=== PATIENT | male | born 1980 | race Caucasian/White ===

== ENCOUNTER 2018-03-26 21:55 | Emergency (ER) | payer OTHER ==
[2018-03-26] MEDS: PERCOCET 5MG/325MG TAB PO (23:46)
[2018-03-26] MEDS: AUGMENTIN 875 MG TAB PO (23:46)
== END 2018-03-26 23:57 | disposition home or self-care (01) ==
LOC: M ED 21:55
DX: K04.7 Periapical abscess without sinus (principal); F17.200 Nicotine dependence, unspecified, uncomplicated; F43.10 Post-traumatic stress disorder, unspecified; G62.9 Polyneuropathy, unspecified; Z79.899 Other long term (current) drug therapy
CPT/HCPCS: 99283

== ENCOUNTER 2018-06-19 17:46 | Emergency (ER) | payer OTHER ==
[2018-06-19] MEDS: LIDOCAINE 1% MDV 20ML VIAL IM (18:15)
[2018-06-19] MEDS: DERMABOND TOPICAL SKIN ADHESIVE TOP (18:15)
== END 2018-06-19 18:48 | disposition home or self-care (01) ==
LOC: M ED 17:46
DX: S68.121A Partial traumatic metacarpophalangeal amputation of left index finger, initial encounter (principal); S68.022A Partial traumatic metacarpophalangeal amputation of left thumb, initial encounter; W27.0XXA Contact with workbench tool, initial encounter; Y92.009 Unspecified place in unspecified non-institutional (private) residence as the place of occurrence of the external cause; F43.10 Post-traumatic stress disorder, unspecified; F17.200 Nicotine dependence, unspecified, uncomplicated
CPT/HCPCS: 12001

== ENCOUNTER 2018-07-28 17:09 | Inpatient (IN) | payer OTHER ==
[2018-07-28 18:01] LABS: HEMATOCRIT 46.1 % (42.0-52.0); HEMOGLOBIN 15.7 g/dl (13.5-17.5); MEAN CORPUSCULAR HEMOGLOBIN 30.8 pg (27.0-33.0); MEAN CORPUSCULAR HGB CONC 34.1 g/dl (32.0-36.5); MEAN CORPUSCULAR VOLUME 90.6 fl (80.0-96.0); PLATELET COUNT, AUTOMATED 208 10^3/uL (150-450); RED BLOOD COUNT 5.09 10^6/uL (4.30-6.10); RED CELL DISTRIBUTION WIDTH 12.4 % (11.5-14.5); WHITE BLOOD COUNT 8.3 10^3/uL (4.0-10.0)
[2018-07-28 18:08] LABS: AMPHETAMINES LEVEL URINE NEGATIVE (NEGATIVE); BARBITURATES URINE NEGATIVE (NEGATIVE); BENZODIAZEPINES URINE NEGATIVE (NEGATIVE); CANNABINOIDS URINE NEGATIVE (NEGATIVE); COCAINE METABOLITE URINE NEGATIVE (NEGATIVE); METHADONE URINE NEGATIVE (NEGATIVE); OPIATES URINE NEGATIVE (NEGATIVE); PHENCYCLIDINE URINE NEGATIVE (NEGATIVE)
[2018-07-28 18:18] LABS: ACETAMINOPHEN LEVEL < 2.0 UG/ML (10.0-30.0); ALBUMIN 4.1 GM/DL (3.2-5.2); ALBUMIN/GLOBULIN RATIO 1.21 (1.00-1.93); ALKALINE PHOSPHATASE 88 U/L (45-117); ALT/SGPT 22 U/L (12-78); ANION GAP 6 MEQ/L (8-16); AST/SGOT 15 U/L (7-37); BILIRUBIN,DIRECT 0.1 MG/DL (0.0-0.2); BILIRUBIN,TOTAL 0.3 MG/DL (0.2-1.0); BLOOD UREA NITROGEN 13 MG/DL (7-18); CALCIUM LEVEL 8.7 MG/DL (8.5-10.1); CARBON DIOXIDE LEVEL 32 MEQ/L (21-32); CHLORIDE LEVEL 106 MEQ/L (98-107); CREATININE FOR GFR 1.27 MG/DL (0.70-1.30); ETHYL ALCOHOL (ETHANOL) < 0.003 % (0.000-0.010); GLOMERULAR FILTRATION RATE > 60.0 (>60); GLUCOSE, FASTING 83 MG/DL (70-100); SALICYLATE LEVEL 1.7 MG/DL (5.0-30.0); SODIUM LEVEL 144 MEQ/L (136-145); TOTAL PROTEIN 7.5 GM/DL (6.4-8.2)
[2018-07-28] MEDS ORDERED: MAALOX 30 ML SUSP *UDC PO (19:45)
[2018-07-28] MEDS ORDERED: MOM 30ML SUSPENSION UDC PO (19:45)
[2018-07-28] MEDS ORDERED: ACETAMINOPHEN TAB 650MG DOSE (2X325MG) PO (19:45)
[2018-07-29] MEDS: INFLUENZA QUADRIVALENT PF VACCINE 0.5ML SYRINGE (90686) IM (09:23)
[2018-07-29] MEDS ORDERED: MIRALAX *UNIT DOSE* 17GM PACKET PO (10:15)
[2018-07-29] MEDS: DOCUSATE SODIUM 100 MG CAP PO ×2 (10:21→21:00)
[2018-07-29] MEDS ORDERED: IBUPROFEN 800 MG TAB PO (10:30)
[2018-07-29] MEDS ORDERED: hydrOXYzine 50 MG TAB PO (11:45)
[2018-07-29] MEDS: SERTRALINE HCL 50 MG TAB PO (12:16)
[2018-07-29] MEDS: busPIRone 10 MG TAB PO ×3 (12:16→21:52)
[2018-07-29] MEDS: traZODone 50 MG TAB PO (23:36)
[2018-07-30] MEDS: LIDOCAINE 5% (LIDODERM) PATCH TD (09:00)
[2018-07-30] MEDS: DOCUSATE SODIUM 100 MG CAP PO ×2 (09:00→21:45)
[2018-07-30] MEDS: SERTRALINE HCL 50 MG TAB PO (09:20)
[2018-07-30] MEDS: busPIRone 10 MG TAB PO ×3 (09:20→21:45)
[2018-07-30] MEDS: **NOTE PATIENT COMMENT** MISC XX (21:00)
[2018-07-30] MEDS: traZODone 50 MG TAB PO (21:45)
[2018-07-31] MEDS: SERTRALINE HCL 50 MG TAB PO (08:43)
[2018-07-31] MEDS: busPIRone 10 MG TAB PO ×3 (08:43→21:22)
[2018-07-31] MEDS: LIDOCAINE 5% (LIDODERM) PATCH TD (08:43)
[2018-07-31] MEDS: DOCUSATE SODIUM 100 MG CAP PO ×2 (08:43→21:22)
[2018-07-31] MEDS: **NOTE PATIENT COMMENT** MISC XX (21:00)
[2018-07-31] MEDS: traZODone 50 MG TAB PO (23:01)
[2018-08-01] MEDS: LIDOCAINE 5% (LIDODERM) PATCH TD (08:55)
[2018-08-01] MEDS: DOCUSATE SODIUM 100 MG CAP PO ×2 (08:56→21:33)
[2018-08-01] MEDS: SERTRALINE HCL 50 MG TAB PO (08:56)
[2018-08-01] MEDS: busPIRone 10 MG TAB PO ×3 (08:56→21:33)
[2018-08-01] MEDS: **NOTE PATIENT COMMENT** MISC XX (21:00)
[2018-08-01] MEDS: traZODone 50 MG TAB PO (22:56)
[2018-08-02] MEDS: DOCUSATE SODIUM 100 MG CAP PO (08:06)
[2018-08-02] MEDS: busPIRone 10 MG TAB PO (08:06)
[2018-08-02] MEDS: LIDOCAINE 5% (LIDODERM) PATCH TD (08:06)
[2018-08-02] MEDS: SERTRALINE HCL 50 MG TAB PO (08:06)
== END 2018-08-02 13:00 | disposition home or self-care (01) | DRG 882 ==
LOC: M ED 17:09 → M ED INP 19:43 → M PSY 20:34
DX: F43.10 Post-traumatic stress disorder, unspecified (principal); R45.851 Suicidal ideations; F60.2 Antisocial personality disorder; F60.81 Narcissistic personality disorder; Z76.5 Malingerer [conscious simulation]; M54.5 Low back pain; Z79.899 Other long term (current) drug therapy

== ENCOUNTER → 2018-11-08 | Outpatient (REF) | payer OTHER ==
[~2018-11-08] MED LIST: AMOX875T2 PO; BUPR150T3 PO; BUPR300T34 PO; BUSP10TA PO; BUSP15TA47 PO; HYDRO50TAB PO; IBUP1TAB7 PO; PERC5TAB12 PO; SERT50TA PO; TRAZO50TA PO; ZOLO100T PO
[2018-11-08 14:19] LABS: BLOOD UREA NITROGEN 12 MG/DL (7-18); CREATININE FOR GFR 0.88 MG/DL (0.70-1.30); GLOMERULAR FILTRATION RATE > 60.0 (>60); RHEUMATOID FACTOR QUANT < 10.0 IU/ML (<15.0); THYROID STIMULATING HORMONE 0.473 uIU/ML (0.358-3.740); TOTAL 25(OH) VITAMIN D 26.9 NG/ML (30.0-100.0); VITAMIN B12 LEVEL 461 PG/ML
[2018-11-08 14:20] LABS: FOLATE 15.9 NG/ML
[2018-11-11 08:07] LABS: ANTINUCLEAR ANTIBODIES DIRECT Negative (Negative); VITAMIN B1 LEVEL WHOLE BLOOD 114.1 nmol/L (66.5-200.0); VITAMIN B6,PYRIDOXAL PHOSPHATE 9.8 ug/L (5.3-46.7); VITAMIN E(ALPHA TOCOPHEROL) 7.4 mg/L (5.9-19.4); VITAMIN E(GAMMA TOCOPHEROL) 0.9 mg/L (0.7-4.9)
== END ==
LOC: M LABNEURO 11:23
PROVIDERS: ATTEND Psychiatry & Neurology Neurology
DX: R51 Headache (principal)

== ENCOUNTER → 2021-08-26 | Outpatient (REF) ==
[~2021-08-26] MED LIST changes: +BUPR150T12 PO; -BUPR150T3 PO; -BUPR300T34 PO; +BUPR300T92 PO; +HYDR1TAB33 PO; -HYDRO50TAB PO; +SERT-141 PO; -SERT50TA PO; +TRAZ1TAB10 PO; -TRAZO50TA PO
--- NOTE | 2021-08-26 13:32 | REP ---
INDICATION: PAIN COMPARISON: None TECHNIQUE: Three views FINDINGS: There is a tiny marginal osteophyte arising from the inferior pole of the articular surface of the patella. The compartments are symmetric and well maintained. There is no fracture or osseous lesion. IMPRESSION: Early patellar degenerative changes. <Electronically signed by Rolly Tamayo > 08/26/21 [id number]
--- NOTE | 2021-08-26 13:58 | REP ---
INDICATION: LOWER BACK PAIN,KNEE PAIN. COMPARISON: None TECHNIQUE: Three views FINDINGS: AP and lateral views show vertebral body height and alignment to be within normal limits. There is minimal posterior disc space narrowing at every level. There is minimal anterior lipping L4 and L5. The pedicles are intact bilaterally. IMPRESSION: Minimal degenerative changes as described above. <Electronically signed by Rolly Tamayo > 08/26/21 [id number]
== END ==
LOC: M PLAIMG 11:53
PROVIDERS: ATTEND Internal Medicine
DX: M17.9 Osteoarthritis of knee, unspecified (principal); M51.36 Other intervertebral disc degeneration, lumbar region

== ENCOUNTER 2022-09-03 09:05 | Emergency (ER) | payer OTHER ==
[~2022-09-03] VITALS: Ht 175.3 cm; Wt 78.3 kg
[2022-09-03] MEDS ORDERED: METHIMAZOLE PO (09:29)
[2022-09-03 12:02] LABS: BASO # 0.1 10^3/uL (0.0-0.2); BASO % 0.7 % (0.0-1.0); EOS # 0.5 10^3/uL (0.0-0.5); EOS % 6.2 % (0.0-3.0); HEMATOCRIT 45.8 % (42.0-52.0); HEMOGLOBIN 15.6 g/dl (13.5-17.5); LYMPH # 1.6 10^3/uL (1.5-5.0); LYMPH % 22.5 % (24.0-44.0); MEAN CORPUSCULAR HEMOGLOBIN 31.6 pg (27.0-33.0); MEAN CORPUSCULAR HGB CONC 34.1 g/dl (32.0-36.5); MEAN CORPUSCULAR VOLUME 92.7 fl (80.0-96.0); MONO # 0.5 10^3/uL (0.0-0.8); MONO % 7.1 % (2.0-8.0); NEUTROPHILS # 4.6 10^3/uL (1.5-8.5); NEUTROPHILS % 63.2 % (36.0-66.0); PLATELET COUNT, AUTOMATED 182 10^3/uL (150-450); RED BLOOD COUNT 4.94 10^6/uL (4.30-6.10); WHITE BLOOD COUNT 7.3 10^3/uL (4.0-10.0)
[2022-09-03 12:11] LABS: APPEARANCE, URINE MANUAL CLEAR (CLEAR); COLOR, URINE MANUAL YELLOW (YELLOW)
[2022-09-03 12:12] LABS: SPECIFIC GRAVITY,URINE MANUAL 1.005 (1.002-1.035)
[2022-09-03 12:13] LABS: BILIRUBIN, URINE MANUAL NEGATIVE (NEGATIVE); BLOOD URINE MANUAL NEGATIVE (NEGATIVE); GLUCOSE, URINE (UA) MANUAL NEGATIVE (NEGATIVE); KETONE, URINE MANUAL NEGATIVE (NEGATIVE); LEUKOCYTE ESTERASE, URINE MAN NEGATIVE (NEGATIVE); NITRITE, URINE MANUAL NEGATIVE (NEGATIVE); PROTEIN, URINE MANUAL NEGATIVE (NEGATIVE); UROBILINOGEN, URINE MANUAL NORMAL (NORMAL)
[2022-09-03 12:52] LABS: ALBUMIN 4.1 GM/DL (3.2-5.2); ALT/SGPT 25 U/L (12-78); BILIRUBIN,DIRECT 0.2 MG/DL (0.0-0.2); BILIRUBIN,TOTAL 0.5 MG/DL (0.2-1.0); BLOOD UREA NITROGEN 10 MG/DL (7-18); CALCIUM LEVEL 9.2 MG/DL (8.5-10.1); CARBON DIOXIDE LEVEL 30 MEQ/L (21-32); CHLORIDE LEVEL 106 MEQ/L (98-107); CREATININE FOR GFR 0.99 MG/DL (0.70-1.30); GLOMERULAR FILTRATION RATE > 60.0 (>60); GLUCOSE, FASTING 93 MG/DL (70-100); LIPASE 203 U/L (73-393); POTASSIUM SERUM 4.3 MEQ/L (3.5-5.1); SODIUM LEVEL 138 MEQ/L (136-145); TOTAL PROTEIN 7.6 GM/DL (6.4-8.2)
[2022-09-03] MEDS ORDERED: GI COCKTAIL 50ML BTL(HYOSCYAMINE/MAALOX/LIDOCAINE VISCOUS)(1:3:1) PO ONE (13:10)
[2022-09-03 13:37] LABS: FREE THYROXINE INDEX 2.5 % (1.4-3.8); T UPTAKE 35 % (33-40); THYROXINE (T4) 7.1 UG/DL (4.5-12.0)
[2022-09-03] MEDS ORDERED: PROT1TAB2 PO (14:01)
[2022-09-03] MEDS ORDERED: SUCR1SS PO (14:01)
[2022-09-03 14:19] VITALS: BP 160/85
== END 2022-09-03 14:20 | disposition home or self-care (01) ==
LOC: M ED 09:05
DX: K29.70 Gastritis, unspecified, without bleeding (principal); K20.90 Esophagitis, unspecified without bleeding; M54.50 Low back pain, unspecified; K21.9 Gastro-esophageal reflux disease without esophagitis; G47.33 Obstructive sleep apnea (adult) (pediatric); F43.10 Post-traumatic stress disorder, unspecified; Z98.52 Vasectomy status; Z79.899 Other long term (current) drug therapy

== ENCOUNTER → 2023-06-11 | Outpatient (REF) | payer OTHER ==
[~2023-06-11] MED LIST changes: +METHIMAZOLE PO; +PROT1TAB2 PO; +SUCR1SS PO
[2023-06-11 16:59] LABS: APPEARANCE, URINE CLEAR (CLEAR); BACTERIA, URINE AUTO NEGATIVE (NEGATIVE); BILIRUBIN, URINE AUTO NEGATIVE (NEGATIVE); BLOOD, URINE BLOOD NEGATIVE (NEGATIVE); COLOR, URINE YELLOW (YELLOW); GLUCOSE, URINE (UA) AUTO NEGATIVE (NEGATIVE); KETONE, URINE AUTO TRACE mg/dL (NEGATIVE); LEUKOCYTE ESTERASE, URINE AUTO NEGATIVE (NEGATIVE); NITRITE, URINE AUTO NEGATIVE (NEGATIVE); PROTEIN, URINE AUTO NEGATIVE (NEGATIVE); RBC, URINE AUTO 10 /HPF (0-3); SQUAMOUS EPITHELIAL CELL UR AU 0 /HPF (0-6); UROBILINOGEN, URINE AUTO 0.2 mg/dL (0.0-2.0); WBC, URINE AUTO 12 /HPF (0-3)
== END ==
LOC: M LAB REF 16:09
PROVIDERS: ATTEND Physician Assistant
DX: N39.0 Urinary tract infection, site not specified (principal)

== ENCOUNTER → 2023-06-21 | Outpatient (REF) | payer OTHER ==
[2023-06-21 17:39] LABS: APPEARANCE, URINE CLEAR (CLEAR); BACTERIA, URINE AUTO NEGATIVE (NEGATIVE); BILIRUBIN, URINE AUTO NEGATIVE (NEGATIVE); BLOOD, URINE BLOOD NEGATIVE (NEGATIVE); COLOR, URINE YELLOW (YELLOW); GLUCOSE, URINE (UA) AUTO NEGATIVE (NEGATIVE); KETONE, URINE AUTO NEGATIVE (NEGATIVE); LEUKOCYTE ESTERASE, URINE AUTO NEGATIVE (NEGATIVE); NITRITE, URINE AUTO NEGATIVE (NEGATIVE); PROTEIN, URINE AUTO NEGATIVE (NEGATIVE); RBC, URINE AUTO 0 /HPF (0-3); SPECIFIC GRAVITY URINE AUTO 1.019 (1.002-1.035); SQUAMOUS EPITHELIAL CELL UR AU 0 /HPF (0-6); UROBILINOGEN, URINE AUTO 0.2 mg/dL (0.0-2.0); WBC, URINE AUTO 9 /HPF (0-3)
[2023-06-21 18:47] LABS: GC DNA AMPLIFICATION NEGATIVE (NEGATIVE)
== END ==
LOC: M LAB REF 16:25
PROVIDERS: ATTEND Physician Assistant Medical
DX: N39.0 Urinary tract infection, site not specified (principal)

== ENCOUNTER 2025-06-21 19:44 | Emergency (ER) | payer OTHER ==
[~2025-06-21] VITALS: Ht 175.3 cm; Wt 71.4 kg
[~2025-06-21 19:44] MED LIST changes: +BUPR-766 PO; -BUPR300T92 PO
[2025-06-21] MEDS ORDERED: ACAR50TA3 PO (19:53)
[2025-06-21] MEDS: PERCOCET 5MG/325MG TAB PO ONE (23:33)
[2025-06-21] MEDS: ONDANSETRON 4MG ORAL DISINTEGRATING TAB PO ONE (23:33)
[2025-06-22] MEDS ORDERED: IBUP600T42 PO (00:07)
[2025-06-22] MEDS ORDERED: PERC5TAB12 PO (00:07)
[2025-06-22 00:31] LABS: APPEARANCE, URINE HAZY (CLEAR); BACTERIA, URINE AUTO NEGATIVE (NEGATIVE); BILIRUBIN, URINE AUTO NEGATIVE (NEGATIVE); BLOOD, URINE BLOOD NEGATIVE (NEGATIVE); GLUCOSE, URINE (UA) AUTO NEGATIVE (NEGATIVE); KETONE, URINE AUTO NEGATIVE (NEGATIVE); LEUKOCYTE ESTERASE, URINE AUTO TRACE (NEGATIVE); MUCUS, URINE SMALL (NEGATIVE); NITRITE, URINE AUTO NEGATIVE (NEGATIVE); PROTEIN, URINE AUTO NEGATIVE (NEGATIVE); RBC, URINE AUTO 2 /HPF (0-3); SPECIFIC GRAVITY URINE AUTO 1.026 (1.002-1.035); SQUAMOUS EPITHELIAL CELL UR AU 3 /HPF (0-6); UROBILINOGEN, URINE AUTO 2.0 mg/dL (0.0-2.0); WBC, URINE AUTO 23 /HPF (0-3)
[2025-06-22 00:42] VITALS: BP 111/78; TEMP 97.1; O2SAT 98
== END 2025-06-22 00:45 | disposition home or self-care (01) ==
LOC: M ED 19:44
DX: S22.32XA Fracture of one rib, left side, initial encounter for closed fracture (principal); W19.XXXA Unspecified fall, initial encounter; Y92.9 Unspecified place or not applicable; Y93.89 Activity, other specified; Y99.9 Unspecified external cause status